=== PATIENT | male | born 1985 | race Caucasian/White ===

== ENCOUNTER 2018-09-15 15:28 | Inpatient (IN) | payer OTHER ==
[2018-09-15 17:52] VITALS: BMI 23.0
--- NOTE | 2018-09-15 19:56 | HP ---
CIWA Score Nausea/Vomitin-Mild Nausea/No Vomiting Muscle Tremors: 1-None Visible, but [place] Anxiety: 2 Agitation: 2 Paroxysmal Sweats: 2 Orientation: 0-Oriented Tacttile Disturbances: 0-None Auditory Disturbances: 0-None Visual Disturbances: 0-None - Admission Criteria OASAS Guidelines: Admission for Medically Managed Detox: Requires at least one of the followin. CIWA greater than 12 2. Seizures within the past 24 hours 3. Delirium tremens within the past 24 hours 4. Hallucinations within the past 24 hours 5. Acute intervention needed for co occurring medical disorder 6. Acute intervention needed for co occurring psychiatric disorder 7. Severe withdrawal that cannot be handled at a lower level of care (continued vomiting, continued diarrhea, abnormal vital signs) requiring intravenous medication and/or fluids 8. Admission ROS [facility] Chief Complaint: detox from benzos Allergies/Adverse Reactions: Allergies Allergy/AdvReac Type Severity Reaction Status Date / Time egg Allergy Verified 09/15/18 20:29 fish derived AdvReac Verified 09/15/18 19:05 History of Present Illness: 33 yo with h/o seizures here for detox from benzos. Pt on methadone 130mg. Has been to several detox- last detox a few months ago- relapsed 3 days after- started getting restless and frustrated, noises and bright lights were bothering him...took Klonopin and felt better. Benzo: xanax 8mg/day, Klonopin 12-14 mg/day> calms him down Alcohol- 1-2 beers/day heroin- occ 1-2 times a week Istop- neg for meds Utox: THC, cocaine, morphine, MTD, benzo Exam Limitations: No Limitations - Ebola screening Have you traveled outside of the country in the last 21 days: No Have you had contact with anyone from an Ebola affected area: No Have you been sick,other than usual withdrawal symptoms: No - Review of Systems Constitutional: No Symptoms Reported EENT: reports: No Symptoms Reported Respiratory: reports: No Symptoms reported Cardiac: reports: No Symptoms Reported GI: reports: No Symptoms Reported, Abdominal cramping : reports: No Symptoms Reported Musculoskeletal: reports: No Symptoms Reported Integumentary: reports: No Symptoms Reported Neuro: reports: No Symptoms reported Endocrine: reports: No Symptoms Reported Hematology: reports: No Symptoms Reported Psychiatric: reports: No Sypmtoms Reported Patient History - Patient Medical History Hx Asthma: No Hx Chronic Obstructive Pulmonary Disease (COPD): No Hx Cardiac Disorders: No Hx Hypertension: No Hx Seizures: Yes (4 MONTHS AGO, on topamax) Hx Diabetes: No Hx Gastrointestinal Disorders: No Hx Genitourinary Disorders: No Hx Sexually Transmitted Disorders: No Hx Renal Disease (ESRD): No Hx Depression: Yes Hx Suicide Attempt: No Hx Schizophrenia: No - Patient Surgical History Past Surgical History: Yes Hx Neurologic Surgery: No Hx Cataract Extraction: No Hx Cardiac Surgery: No Hx Lung Surgery: No Hx Breast Surgery: No Hx Breast Biopsy: No Hx Abdominal Surgery: No Hx Appendectomy: No Hx Cholecystectomy: No Hx Genitourinary Surgery: No Hx Section: No Hx Orthopedic Surgery: No Other Surgical History: LEFT JAW BROKEN 2017-METAL PLATE IMPLANTED Anesthesia Reaction: No - PPD History Previous Implant?: Yes Documented Results: Negative w/o proof Implanted On Prior [facility] Admission?: No - Smoking Cessation Smoking history: Current every day smoker Have you smoked in the past 12 months: Yes Aproximately how many cigarettes per day: 5 Hx Chewing Tobacco Use: No Initiated information on smoking cessation: No 'Breaking Loose' booklet given: 09/15/18 - Substance & Tx. History Hx Alcohol Use: Yes (occasional) Substance Use Type: Alcohol (a little bit), Cocaine (twice a week), Heroin ( twice a week on methadone), Marijuana (4 blunts/day), Opiates Hx Substance Use Treatment: Yes - Substances Abused Alprazolam (Xanax) Route: Oral Frequency: Daily Amount used: 8 MG DAILY Age of first use: 17 Date of Last Use: 09/14/18 Alcohol Route: Oral Frequency: Daily Amount used: 2 22 [employer] Age of first use: 15 Date of Last Use: 09/14/18 Heroin Route: Injection Frequency: 1-2 times per week Amount used: 2 BAGS Age of first use: 20 Date of Last Use: 09/13/18 Benzodiazepine (Klonopin) Route: Oral Frequency: Daily Amount used: 12-14 MG Age of first use: 17 Date of Last Use: 09/14/18 Family Disease History - Family Disease History Family Disease History: Diabetes: Father (alcohol addiction), Other: Father, Mother (alcohol addiction) Admission Physical Exam [facility] - Vital Signs Vital Signs: Vital Signs - 24 hr 09/15/18 17:50 Temperature 98.7 F Pulse Rate 70 Respiratory 18 Rate Blood Pressure 100/65 - Physical General Appearance: Yes: Within Normal Limits HEENTM: Yes: Within Normal Limits Respiratory: Yes: Within Normal Limits Neck: Yes: Within Normal Limits Cardiology: Yes: Within Normal Limits Abdominal: Yes: Within Normal Limits Genitourinary: Yes: Within Normal Limits Back: Yes: Within Normal Limits Musculoskeletal: Yes: Within Normal Limits Extremities: Yes: Within Normal Limits Neurological: Yes: Within Normal Limits Integumentary: Yes: Within Normal Limits Lymphatic: Yes: Within Normal Limits Cleared for Admission [facility] - Detox or Rehab [facility] Level of Care: Medically Managed [facility] Breath Alcohol Content Breath Alcohol Content: 0 Urine Drug Screen - Results Drug Screen Negative: No Urine Drug Screen Results: THC-Marijuana, VANDANA-Cocaine, OPI-Opiates, BZO- Benzodiazepines, MTD-Methadone
[2018-09-15] MEDS ORDERED: guaiFENesin/D-METHORPHAN HB 10 ML UNIT-DOSE CUPS PO PRN (20:10)
[2018-09-15] MEDS ORDERED: P-EPHED 60MG/TRIPROLIDI 2.5MG TABLET PO PRN (20:10)
[2018-09-15] MEDS ORDERED: MAGNESIUM CITRATE 300 ML BOTTLE PO PRN (20:10)
[2018-09-15] MEDS ORDERED: MAG HYDROX/AL HYDROX/SIMETH 30 ML UNIT-DOSE CUP PO PRN (20:10)
[2018-09-15] MEDS ORDERED: IBUPROFEN 400 MG TABLET (FP) PO PRN (20:10)
[2018-09-15] MEDS ORDERED: MENTHOL/PHENOL 1 EACH UD MM PRN (20:10)
[2018-09-15] MEDS ORDERED: LOPERAMIDE HCL 2 MG CAPSULE PO PRN (20:10)
[2018-09-15] MEDS ORDERED: MAGNESIUM HYDROX 2400MG/30ML ORAL SUSPENSION 30 ML CUP PO PRN (20:10)
[2018-09-15] MEDS ORDERED: diazePAM 5 MG TABLET PO ONE (20:30)
[2018-09-15] MEDS: THIAMINE HCL 100 MG TABLET (FP) PO SCH (22:15)
[2018-09-15] MEDS: diazePAM 5 MG TABLET PO SCH (22:15)
[2018-09-15] MEDS: TOPIRAMATE 100 MG TABLET PO SCH (22:15)
[2018-09-15] MEDS: MELATONIN 5 MG TABLETS PO PRN (22:16)
[2018-09-15] MEDS: FLUTICASONE PROP 0.05% 16 GM NASAL SPRAY NS SCH (23:24)
[2018-09-16 04:05] LABS: URINE APPEARANCE TURBID; URINE BILIRUBIN NEGATIVE (<2.0 mg/dL); URINE COLOR YELLOW; URINE GLUCOSE (UA) NEGATIVE (NEGATIVE); URINE KETONE NEGATIVE (NEGATIVE); URINE LEUK ESTERASE 2+ (NEGATIVE); URINE NITRITE NEGATIVE (NEGATIVE); URINE PROTEIN 1+ (NEGATIVE)
[2018-09-16 04:43] LABS: URINE BACTERIA FEW /hpf (NONE SEEN); URINE MUCUS FEW; YEAST MANY
[2018-09-16] MEDS: diazePAM 5 MG TABLET PO SCH ×3 (05:17→22:06)
[2018-09-16] MEDS ORDERED: METHADONE HCL 10 MG TABLET PO SCH (07:30)
[2018-09-16] MEDS ORDERED: METHADONE HCL 40 MG DISPERSABLE TABLET ONE (08:01)
[2018-09-16] MEDS ORDERED: METHADONE HCL 10 MG TABLET ONE (08:01)
[2018-09-16] MEDS: METHADONE 120 MG, METHADONE 10 MG PO SCH (08:02)
[2018-09-16] MEDS: diazePAM 5 MG TABLET PO PRN (10:18)
[2018-09-16] MEDS: FLUTICASONE PROP 0.05% 16 GM NASAL SPRAY NS SCH ×2 (10:18→22:06)
[2018-09-16] MEDS: PRENATAL VITAMINS W/ FOLIC ACID TABLET (FP) PO SCH (10:18)
[2018-09-16 10:59] LABS: HEMATOCRIT 37.3 % (35.4-49); HEMOGLOBIN 11.9 GM/dL (11.7-16.9); MCH 26.6 pg (25.7-33.7); MEAN CELL VOLUME 83.2 fl (80-96); MEAN PLT VOLUME 7.8 fl (7.5-11.1); PLATELET COUNT 261 K/MM3 (134-434); RBC 4.48 M/mm3 (4.00-5.60); RDW 14.1 % (11.9-15.9); WHITE BLOOD COUNT 7.7 K/mm3 (4.0-10.0)
[2018-09-16] MEDS: TOPIRAMATE 100 MG TABLET PO SCH ×2 (11:15→22:07)
[2018-09-16] MEDS ORDERED: ALBUTEROL SO4 8 GM HFA INHALER IH PRN (11:15)
--- NOTE | 2018-09-16 11:18 | PN ---
[facility] CIWA - CIWA Score Nausea/Vomitin-Mild Nausea/No Vomiting Muscle Tremors: 2 Anxiety: 3 Agitation: 3 Paroxysmal Sweats: 1-Minimal Palms Moist Orientation: 1-Uncertain about Date Tacttile Disturbances: 0-None Auditory Disturbances: 0-None Visual Disturbances: 0-None Headache: 2-Mild CIWA-Ar Total Score: 13 S Progress Note (SOAP) Subjective: anxiety gi distress methadone 130 mg po restlessness Objective: 09/16/18 11:17 Vital Signs Temperature 97.8 F 09/16/18 09:28 Pulse Rate 69 09/16/18 09:28 Respiratory Rate 18 09/16/18 09:28 Blood Pressure 96/53 L 09/16/18 09:28 O2 Sat by Pulse Oximetry (%) Laboratory Last Values WBC 7.7 K/mm3 (4.0-10.0) 09/16/18 07:30 RBC 4.48 M/mm3 (4.00-5.60) 09/16/18 07:30 Hgb 11.9 GM/dL (11.7-16.9) 09/16/18 07:30 Hct 37.3 % (35.4-49) 09/16/18 07:30 MCV 83.2 fl (80-96) 09/16/18 07:30 MCH 26.6 pg (25.7-33.7) 09/16/18 07:30 MCHC 32.0 g/dl (32.0-35.9) 09/16/18 07:30 RDW 14.1 % (11.9-15.9) 09/16/18 07:30 Plt Count 261 K/MM3 (134-434) 09/16/18 07:30 MPV 7.8 fl (7.5-11.1) 09/16/18 07:30 Urine Color Yellow 09/16/18 00:05 Urine Appearance Turbid 09/16/18 00:05 Urine pH 5.0 (5.0-8.0) 09/16/18 00:05 Ur Specific [place] 1.029 (1.010-1.035) 09/16/18 00:05 Urine Protein 1+ (NEGATIVE) H 09/16/18 00:05 Urine Glucose (UA) Negative (NEGATIVE) 09/16/18 00:05 Urine Ketones Negative (NEGATIVE) 09/16/18 00:05 Urine Blood Negative (NEGATIVE) 09/16/18 00:05 Urine Nitrite Negative (NEGATIVE) 09/16/18 00:05 Urine Bilirubin Negative (<2.0 mg/dL) 09/16/18 00:05 Urine Urobilinogen 2.0 mg/dL (0.2-1.0) 09/16/18 00:05 Ur Leukocyte Esterase 2+ (NEGATIVE) H 09/16/18 00:05 Urine WBC (Auto) 63 /hpf (3-5) 09/16/18 00:05 Urine RBC (Auto) None /hpf (0-3) 09/16/18 00:05 Urine Bacteria Few /hpf (NONE SEEN) 09/16/18 00:05 Urine Mucus Few 09/16/18 00:05 Urine Yeast Many 09/16/18 00:05 lab notefd uti 09/16/18 11:18 Assessment: 09/16/18 11:18 withdrawal sx uti Plan: continue detox bactrim ds bid
[2018-09-16] MEDS ORDERED: RANITIDINE HCL 150 MG TABLET (FP) PO SCH (11:30)
[2018-09-16 11:32] LABS: ALBUMIN 3.5 g/dl (3.4-5.0); ALK PHOS 90 U/L (45-117); ANION GAP 9 MMOL/L (8-16); BILIRUBIN,TOTAL 0.1 mg/dL (0.2-1); BLOOD UREA NITROGEN 12 mg/dL (7-18); CALCIUM 8.4 mg/dL (8.5-10.1); CHLORIDE 108 mmol/L (98-107); CO2 25 mmol/L (21-32); GLUCOSE,RANDOM 87 mg/dL (74-106); POTASSIUM 4.1 mmol/L (3.5-5.1); SGOT/AST 17 U/L (15-37); SGPT/ALT 19 U/L (13-61); SODIUM 142 mmol/L (136-145)
[2018-09-16] MEDS: SULFAMETHOXAZOLE/TRIMETHOPRIM 800MG/160MG D.S. TABLET PO SCH ×2 (11:44→22:07)
[2018-09-16] MEDS: RANITIDINE HCL 150 MG TABLET (FP) PO SCH ×2 (11:45→22:06)
[2018-09-16] MEDS: ACETAMINOPHEN 325 MG TABLET (FP) PO PRN (14:52)
[2018-09-16] MEDS: THIAMINE HCL 100 MG TABLET (FP) PO SCH (22:06)
[2018-09-16] MEDS: MELATONIN 5 MG TABLETS PO PRN (22:07)
[2018-09-16] MEDS: MONTELUKAST NA 10 MG TABLET PO SCH (22:07)
[2018-09-17] MEDS ORDERED: METHADONE HCL 40 MG DISPERSABLE TABLET ONE (04:53)
[2018-09-17] MEDS ORDERED: METHADONE HCL 10 MG TABLET ONE (04:53)
[2018-09-17] MEDS: diazePAM 5 MG TABLET PO PRN ×2 (05:17→17:29)
[2018-09-17] MEDS: ACETAMINOPHEN 325 MG TABLET (FP) PO PRN ×2 (05:18→17:19)
[2018-09-17] MEDS: METHADONE 120 MG, METHADONE 10 MG PO SCH (05:18)
[2018-09-17] MEDS: TOPIRAMATE 100 MG TABLET PO SCH ×2 (10:16→22:17)
[2018-09-17] MEDS: FLUTICASONE PROP 0.05% 16 GM NASAL SPRAY NS SCH ×2 (10:16→22:17)
[2018-09-17] MEDS: SULFAMETHOXAZOLE/TRIMETHOPRIM 800MG/160MG D.S. TABLET PO SCH ×2 (10:16→22:17)
[2018-09-17] MEDS: diazePAM 5 MG TABLET PO SCH ×2 (10:16→22:17)
[2018-09-17] MEDS: RANITIDINE HCL 150 MG TABLET (FP) PO SCH ×2 (10:16→22:17)
[2018-09-17] MEDS: PRENATAL VITAMINS W/ FOLIC ACID TABLET (FP) PO SCH (10:16)
[2018-09-17] MEDS: PETROLATUM, WHITE 30 GM TUBE TP SCH (12:24)
--- NOTE | 2018-09-17 14:57 | PN ---
[facility] CIWA - CIWA Score Nausea/Vomitin-Mild Nausea/No Vomiting Muscle Tremors: 2 Anxiety: 3 Agitation: 2 Paroxysmal Sweats: 1-Minimal Palms Moist Orientation: 0-Oriented Tacttile Disturbances: 0-None Auditory Disturbances: 0-None Visual Disturbances: 0-None Headache: 2-Mild CIWA-Ar Total Score: 11 S Progress Note (SOAP) Subjective: tremor sweat anxiety trouble sleep throughout the night Objective: 09/17/18 15:02 Vital Signs Temperature 97.3 F L 09/17/18 13:28 Pulse Rate 74 09/17/18 13:28 Respiratory Rate 18 09/17/18 13:28 Blood Pressure 104/60 09/17/18 13:28 O2 Sat by Pulse Oximetry (%) Laboratory Last Values WBC 7.7 K/mm3 (4.0-10.0) 09/16/18 07:30 RBC 4.48 M/mm3 (4.00-5.60) 09/16/18 07:30 Hgb 11.9 GM/dL (11.7-16.9) 09/16/18 07:30 Hct 37.3 % (35.4-49) 09/16/18 07:30 MCV 83.2 fl (80-96) 09/16/18 07:30 MCH 26.6 pg (25.7-33.7) 09/16/18 07:30 MCHC 32.0 g/dl (32.0-35.9) 09/16/18 07:30 RDW 14.1 % (11.9-15.9) 09/16/18 07:30 Plt Count 261 K/MM3 (134-434) 09/16/18 07:30 MPV 7.8 fl (7.5-11.1) 09/16/18 07:30 Sodium 142 mmol/L (136-145) 09/16/18 07:30 Potassium 4.1 mmol/L (3.5-5.1) 09/16/18 07:30 Chloride 108 mmol/L (98-107) H 09/16/18 07:30 Carbon Dioxide 25 mmol/L (21-32) 09/16/18 07:30 Anion Gap 9 MMOL/L (8-16) 09/16/18 07:30 BUN 12 mg/dL (7-18) 09/16/18 07:30 Creatinine 1.0 mg/dL (0.55-1.3) 09/16/18 07:30 Creat Clearance w eGFR > 60 (>60) 09/16/18 07:30 Random Glucose 87 mg/dL (74-106) 09/16/18 07:30 Calcium 8.4 mg/dL (8.5-10.1) L 09/16/18 07:30 Total Bilirubin 0.1 mg/dL (0.2-1) L 09/16/18 07:30 AST 17 U/L (15-37) 09/16/18 07:30 ALT 19 U/L (13-61) 09/16/18 07:30 Alkaline Phosphatase 90 U/L (45-117) 09/16/18 07:30 Total Protein 7.0 g/dl (6.4-8.2) 09/16/18 07:30 Albumin 3.5 g/dl (3.4-5.0) 09/16/18 07:30 Urine Color Yellow 09/16/18 00:05 Urine Appearance Turbid 09/16/18 00:05 Urine pH 5.0 (5.0-8.0) 09/16/18 00:05 Ur Specific [employer] 1.029 (1.010-1.035) 09/16/18 00:05 Urine Protein 1+ (NEGATIVE) H 09/16/18 00:05 Urine Glucose (UA) Negative (NEGATIVE) 09/16/18 00:05 Urine Ketones Negative (NEGATIVE) 09/16/18 00:05 Urine Blood Negative (NEGATIVE) 09/16/18 00:05 Urine Nitrite Negative (NEGATIVE) 09/16/18 00:05 Urine Bilirubin Negative (<2.0 mg/dL) 09/16/18 00:05 Urine Urobilinogen 2.0 mg/dL (0.2-1.0) 09/16/18 00:05 Ur Leukocyte Esterase 2+ (NEGATIVE) H 09/16/18 00:05 Urine WBC (Auto) 63 /hpf (3-5) 09/16/18 00:05 Urine RBC (Auto) None /hpf (0-3) 18 00:05 Urine Bacteria Few /hpf (NONE SEEN) 09/16/18 00:05 Urine Mucus Few 09/16/18 00:05 Urine Yeast Many 09/16/18 00:05 RPR Titer Nonreactive (NONREACTIVE) 09/16/18 07:30 lab noted continue bactrim oral fluid 09/17/18 15:03 Assessment: 09/17/18 15:03 withdrawal sx uti Plan: continue detox oral fluid
[2018-09-17] MEDS: MONTELUKAST NA 10 MG TABLET PO SCH (22:17)
[2018-09-17] MEDS: THIAMINE HCL 100 MG TABLET (FP) PO SCH (22:17)
[2018-09-18] MEDS ORDERED: METHADONE HCL 10 MG TABLET ONE (04:47)
[2018-09-18] MEDS ORDERED: METHADONE HCL 40 MG DISPERSABLE TABLET ONE (04:47)
[2018-09-18] MEDS: METHADONE 120 MG, METHADONE 10 MG PO SCH (05:24)
[2018-09-18] MEDS: FLUTICASONE PROP 0.05% 16 GM NASAL SPRAY NS SCH ×2 (10:33→22:09)
[2018-09-18] MEDS: RANITIDINE HCL 150 MG TABLET (FP) PO SCH ×2 (10:34→22:09)
[2018-09-18] MEDS: TOPIRAMATE 100 MG TABLET PO SCH ×2 (10:34→22:08)
[2018-09-18] MEDS: PETROLATUM, WHITE 30 GM TUBE TP SCH (10:34)
[2018-09-18] MEDS: PRENATAL VITAMINS W/ FOLIC ACID TABLET (FP) PO SCH (10:34)
[2018-09-18] MEDS: SULFAMETHOXAZOLE/TRIMETHOPRIM 800MG/160MG D.S. TABLET PO SCH ×2 (10:34→22:08)
[2018-09-18] MEDS: diazePAM 5 MG TABLET PO SCH ×2 (10:34→22:09)
--- NOTE | 2018-09-18 13:12 | PN ---
[facility] Progress Note Note: PATIENT CONTINUES WITH DETOX PROTOCOL. STATES HE FEELS MUCH BETTER, C/O ANXIETY BUT MANAGEABLE WITH CURRENT TREATMENT AND SUPPORTIVE MEASURES. Vital Signs Temperature 97.9 F 09/18/18 10:58 Pulse Rate 79 09/18/18 10:58 Respiratory Rate 20 09/18/18 10:58 Blood Pressure 100/67 09/18/18 10:58 O2 Sat by Pulse Oximetry (%) Laboratory Tests 09/16/18 09/16/18 09/16/18 00:05 07:30 07:30 WBC 7.7 RBC 4.48 Hgb 11.9 Hct 37.3 MCV 83.2 MCH 26.6 MCHC 32.0 RDW 14.1 Plt Count 261 MPV 7.8 Sodium 142 Potassium 4.1 Chloride 108 H Carbon Dioxide 25 Anion Gap 9 BUN 12 Creatinine 1.0 Creat Clearance w eGFR > 60 Random Glucose 87 Calcium 8.4 L Total Bilirubin 0.1 L AST 17 ALT 19 Alkaline Phosphatase 90 Total Protein 7.0 Albumin 3.5 Urine Color Yellow Urine Appearance Turbid Urine pH 5.0 Ur Specific [place] 1.029 Urine Protein 1+ H Urine Glucose (UA) Negative Urine Ketones Negative Urine Blood Negative Urine Nitrite Negative Urine Bilirubin Negative Urine Urobilinogen 2.0 Ur Leukocyte Esterase 2+ H Urine WBC (Auto) 63 Urine RBC (Auto) None Urine Bacteria Few Urine Mucus Few Urine Yeast Many RPR Titer 09/16/18 07:30 WBC RBC Hgb Hct MCV MCH MCHC RDW Plt Count MPV Sodium Potassium Chloride Carbon Dioxide Anion Gap BUN Creatinine Creat Clearance w eGFR Random Glucose Calcium Total Bilirubin AST ALT Alkaline Phosphatase Total Protein Albumin Urine Color Urine Appearance Urine pH Ur Specific [place] Urine Protein Urine Glucose (UA) Urine Ketones Urine Blood Urine Nitrite Urine Bilirubin Urine Urobilinogen Ur Leukocyte Esterase Urine WBC (Auto) Urine RBC (Auto) Urine Bacteria Urine Mucus Urine Yeast RPR Titer Nonreactive PE; ALERT AND ORIENTED X 3 SKIN WARM AND DRY DENIES SI/HI EXT FULL ROM, NO TREMORS NOTED AMB AD ERIBERTO A/P; WITHDRAWAL SX CONTINUE DETOX REGIMEN ENCOURAGE ORAL FLUIDS FOR D/C IN AM
[2018-09-18] MEDS: ACETAMINOPHEN 325 MG TABLET (FP) PO PRN (17:33)
[2018-09-18] MEDS: THIAMINE HCL 100 MG TABLET (FP) PO SCH (22:08)
[2018-09-18] MEDS: MONTELUKAST NA 10 MG TABLET PO SCH (22:09)
[2018-09-19] MEDS ORDERED: METHADONE HCL 40 MG DISPERSABLE TABLET ONE (04:43)
[2018-09-19] MEDS ORDERED: METHADONE HCL 10 MG TABLET ONE (04:43)
[2018-09-19] MEDS: METHADONE 120 MG, METHADONE 10 MG PO SCH (05:05)
[2018-09-19 06:15] VITALS: BP 107/70; PULSE 84; TEMP 97.2
[2018-09-19] MEDS ORDERED: diazePAM 5 MG TABLET PO SCH (10:00)
== END 2018-09-19 06:45 | disposition home or self-care (01) | DRG 773 ==
LOC: YASAS 15:28 → Y3N 19:37
PROC: HZ2ZZZZ Detoxification Services for Substance Abuse Treatment (ICD-10-PCS; principal; 2018-09-15)
DX: F13.230 Sedative, hypnotic or anxiolytic dependence with withdrawal, uncomplicated (principal); F10.230 Alcohol dependence with withdrawal, uncomplicated; F11.20 Opioid dependence, uncomplicated; F17.210 Nicotine dependence, cigarettes, uncomplicated; N39.0 Urinary tract infection, site not specified; G40.909 Epilepsy, unspecified, not intractable, without status epilepticus; Z91.012 Allergy to eggs; Z91.013 Allergy to seafood
CPT/HCPCS: 36415; 80053; 81003; 81015; 85027; 86593

== ENCOUNTER 2019-02-12 12:13 | Inpatient (IN) | payer OTHER ==
[2019-02-12 13:45] VITALS: BMI 22.2
--- NOTE | 2019-02-12 15:44 | HP ---
CIWA Score Nausea/Vomitin Muscle Tremors: 2 Anxiety: 4-Mod. Anxious/Guarded Agitation: 1-Slight > Activity Paroxysmal Sweats: 2 Orientation: 2-Disoriented Date<2 days Tacttile Disturbances: 0-None Auditory Disturbances: 0-None Visual Disturbances: 2-Mild Sensitivity Headache: 5-Severe CIWA-Ar Total Score: 21 - Admission Criteria OASAS Guidelines: Admission for Medically Managed Detox: Requires at least one of the followin. CIWA greater than 12 2. Seizures within the past 24 hours 3. Delirium tremens within the past 24 hours 4. Hallucinations within the past 24 hours 5. Acute intervention needed for co occurring medical disorder 6. Acute intervention needed for co occurring psychiatric disorder 7. Severe withdrawal that cannot be handled at a lower level of care (continued vomiting, continued diarrhea, abnormal vital signs) requiring intravenous medication and/or fluids 8. Admission ROS [facility] Allergies/Adverse Reactions: Allergies Allergy/AdvReac Type Severity Reaction Status Date / Time egg Allergy Verified 02/12/19 13:27 fish derived AdvReac Verified 02/12/19 13:27 History of Present Illness: pt here requesting detox from benzo use, reports 4-6 /day Klonopin max 10 mg/ day and xanax 12 mg /day x 10 years , reports panic d/o and seizures if not using , reports seizure d/o x 12 years , latest use 7 am heroin use since age 19 , IVDU since age 24 , current daily use 2 bags every other day , needles from the exchange, denies sharing , denies re-using , denies abscess or OD currently in [facility] x 2 mo , previously in another [facility] x 4 years , daily dose 130 mg , latest today . 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 Exam Limitations: Clinical Condition - Ebola screening Have you traveled outside of the country in the last 21 days: No Have you had contact with anyone from an Ebola affected area: No Do you have a fever: No - Review of Systems Constitutional: See HPI EENT: reports: Other (glasses) Respiratory: reports: No Symptoms reported Cardiac: reports: No Symptoms Reported GI: reports: See HPI : reports: No Symptoms Reported Musculoskeletal: reports: No Symptoms Reported Integumentary: reports: Rash (x 3 days on both legs , pruritic) Neuro: reports: Headache, Seizure Endocrine: reports: No Symptoms Reported Psychiatric: reports: Orientated x3 Patient History - Patient Medical History Hx Asthma: No Hx Chronic Obstructive Pulmonary Disease (COPD): No Hx Cardiac Disorders: No Hx Hypertension: No Hx Seizures: Yes (4 MONTHS AGO, on topamax) Hx Diabetes: No Hx Gastrointestinal Disorders: No Hx Genitourinary Disorders: No Hx Sexually Transmitted Disorders: No Hx Renal Disease (ESRD): No Hx Depression: Yes Hx Suicide Attempt: No Hx Schizophrenia: No - Patient Surgical History Past Surgical History: Yes Hx Neurologic Surgery: No Hx Cataract Extraction: No Hx Cardiac Surgery: No Hx Lung Surgery: No Hx Breast Surgery: No Hx Breast Biopsy: No Hx Abdominal Surgery: No Hx Appendectomy: No Hx Cholecystectomy: No Hx Genitourinary Surgery: No Hx Section: No Hx Orthopedic Surgery: No Other Surgical History: LEFT JAW BROKEN 2017-METAL PLATE IMPLANTED Anesthesia Reaction: No - PPD History Date: 09/17/18 - Smoking Cessation Smoking history: Current every day smoker Have you smoked in the past 12 months: Yes Aproximately how many cigarettes per day: 5 Hx Chewing Tobacco Use: No Initiated information on smoking cessation: No - Substances abused Alcohol Substance route: Oral Frequency: Daily Amount used: beers- 24oz can liquor- 1pt Age of first use: 12 Date of last use: 02/11/19 Alprazolam (Xanax) Substance route: Oral Frequency: Daily Amount used: 12mg Age of first use: 15 Date of last use: 02/11/19 Cocaine Substance route: Injection Frequency: Daily Amount used: $60 Age of first use: 10 Date of last use: 02/11/19 Heroin Substance route: Injection Frequency: Daily Amount used: 2bags Age of first use: 19 Date of last use: 02/11/19 Family Disease History - Family Disease History Family Disease History: Diabetes: Father (alcohol addiction), Other: Father, Mother (alcohol addiction) Admission Physical Exam [facility] - Vital Signs Vital Signs: Vital Signs - 24 hr 02/12/19 13:23 Temperature 97.2 F L Pulse Rate 66 Respiratory 18 Rate Blood Pressure 106/62 - Physical General Appearance: Yes: Mild Distress, Anxious HEENTM: Yes: EOMI, Hearing grossly Normal, Normocephalic, Normal Voice, Other ( poor dentition , missing teeth) Respiratory: Yes: Chest Non-Tender, No Respiratory Distress, No Accessory Muscle Use Neck: Yes: No masses,lesions,Nodules, Trachea in good position Cardiology: Yes: Regular Rhythm, Regular Rate, S1, S2 Abdominal: Yes: Non Tender, Soft Back: Yes: Normal Inspection Musculoskeletal: Yes: Gait Steady Extremities: Yes: Normal Range of Motion, Non-Tender, Tremors Neurological: Yes: Alert, Motor Strength 5/5, Normal Mood/Affect Integumentary: Yes: Warm, Rash (bilateral anterior thighs macular no d/c) - Diagnostic (1) Alcohol abuse Current Visit: Yes Status: Acute (2) Cocaine dependence Current Visit: Yes Status: Chronic Qualifiers: Substance use status: uncomplicated Qualified Code(s): F14.20 - Cocaine dependence, uncomplicated (3) Sedative, hypnotic or anxiolytic abuse with sedative, hypnotic or anxiolytic -induced anxiety disorder Current Visit: Yes Status: Acute (4) Methadone maintenance therapy patient Current Visit: Yes Status: Chronic (5) Nicotine dependence Current Visit: Yes Status: Chronic Qualifiers: Nicotine product type: cigarettes (6) Cannabis abuse Current Visit: Yes Status: Chronic Breathalyzer - Breathalyzer Breathalyzer: 0 Urine Drug Screen - Test Device Lot number: [id number] Expiration date: 11/05/20 - Control Is test valid?: Yes - Results Drug screen NEGATIVE: No Urine drug screen results: THC-Marijuana, VANDANA-Cocaine, MOP-Opiates, MTD- Methadone, BZO-Benzodiazepines Inpatient Rehab Admission - Rehab Decision to Admit Inpatient rehab admission?: No
[2019-02-12] MEDS ORDERED: MENTHOL/PHENOL 1 EACH UD MM PRN (15:52)
[2019-02-12] MEDS ORDERED: MAGNESIUM HYDROX 2400MG/30ML ORAL SUSPENSION 30 ML CUP PO PRN (15:52)
[2019-02-12] MEDS ORDERED: MELATONIN 5 MG TABLETS PO PRN (15:52)
[2019-02-12] MEDS ORDERED: IBUPROFEN 400 MG TABLET (FP) PO PRN (15:52)
[2019-02-12] MEDS ORDERED: ACETAMINOPHEN 325 MG TABLET (FP) PO PRN ×2 (15:52)
[2019-02-12] MEDS ORDERED: MAGNESIUM CITRATE 300 ML BOTTLE PO PRN (15:52)
[2019-02-12] MEDS ORDERED: chlordiazePOXIDE HCL 25 MG CAPSULE PO PRN (15:52)
[2019-02-12] MEDS ORDERED: diphenhydrAMINE HCL 25 MG CAPSULE (FP) PO ONE (16:45)
[2019-02-12] MEDS: chlordiazePOXIDE HCL 25 MG CAPSULE PO SCH ×2 (17:06→22:07)
[2019-02-12] MEDS: MAG HYDROX/AL HYDROX/SIMETH 30 ML UNIT-DOSE CUP PO PRN (17:10)
[2019-02-12] MEDS: levETIRAcetam 250 MG TABLET (FP) PO SCH (22:06)
[2019-02-12] MEDS: THIAMINE HCL 100 MG TABLET (FP) PO SCH (22:07)
[2019-02-13] MEDS ORDERED: METHADONE HCL 10 MG TABLET ONE (04:57)
[2019-02-13] MEDS ORDERED: METHADONE HCL 40 MG DISPERSABLE TABLET ONE (04:58)
[2019-02-13] MEDS: chlordiazePOXIDE HCL 25 MG CAPSULE PO SCH ×4 (05:53→21:59)
[2019-02-13] MEDS: METHADONE 120 MG, METHADONE 10 MG PO SCH (05:53)
[2019-02-13] MEDS ORDERED: METHADONE HCL 10 MG TABLET PO SCH (06:00)
[2019-02-13] MEDS: BISMUTH SUBSALICYLATE 524 MG/30 ML UD PO PRN ×2 (08:50→13:58)
[2019-02-13] MEDS: levETIRAcetam 250 MG TABLET (FP) PO SCH ×2 (10:32→21:57)
[2019-02-13] MEDS: PRENATAL VITAMINS W/ FOLIC ACID TABLET (FP) PO SCH (10:33)
[2019-02-13] MEDS: diphenhydrAMINE HCL 25 MG CAPSULE (FP) PO PRN ×2 (10:34→16:56)
[2019-02-13 11:39] LABS: ALBUMIN 3.6 g/dl (3.4-5.0); BILIRUBIN,TOTAL 0.2 mg/dL (0.2-1); CALCIUM 8.8 mg/dL (8.5-10.1); CREATININE 0.7 mg/dL (0.55-1.3); HEMATOCRIT 38.2 % (35.4-49); HEMOGLOBIN 12.4 GM/dL (11.7-16.9); MCHC 32.4 g/dl (32.0-35.9); MEAN CELL VOLUME 83.2 fl (80-96); MEAN PLT VOLUME 7.8 fl (7.5-11.1); PLATELET COUNT 349 K/MM3 (134-434); POTASSIUM 4.4 mmol/L (3.5-5.1); RBC 4.59 M/mm3 (4.00-5.60); TOT PROT 7.2 g/dl (6.4-8.2); WHITE BLOOD COUNT 8.2 K/mm3 (4.0-10.0)
--- NOTE | 2019-02-13 14:42 | PN ---
[facility] CIWA - CIWA Score Nausea/Vomitin-No Nausea/No Vomiting Muscle Tremors: None Anxiety: 4-Mod. Anxious/Guarded Agitation: 2 Paroxysmal Sweats: No Perspiration Orientation: 0-Oriented Tacttile Disturbances: 3-Moderate Itch/Numb/Burn Auditory Disturbances: 0-None Visual Disturbances: 3-Moderate Sensitivity Headache: 0-None Present CIWA-Ar Total Score: 12 BHS Progress Note (SOAP) Subjective: Anxious, Itching (Generalized throughout multiple parts of body), Diarrhea. Objective: PATIENT A & O X 3, OBSERVED AMBULATING ON UNIT UNASSISTED. IN NO ACUTE DISTRESS. NO ERYTHEMA OR SKIN LESIONS VISUALIZED ON ANY PART OF BODY THAT PATIENT REPORTS TO FEEL ITCHY. PATIENT DENIES ANY KNOWN RECENT CONTACT WITH ANY UNUSUAL SUBSTANCES / SURFACES. PATIENT BELIEVES THAT ITCHING MAY BE DUE TO EGG ALLERGY? 02/13/19 14:43 Vital Signs Temperature 97.0 F L 02/13/19 10:25 Pulse Rate 62 02/13/19 10:25 Respiratory Rate 20 02/13/19 10:25 Blood Pressure 97/58 L 02/13/19 10:25 O2 Sat by Pulse Oximetry (%) Laboratory Tests 02/13/19 02/13/19 02/13/19 08:00 08:00 08:00 WBC 8.2 RBC 4.59 Hgb 12.4 Hct 38.2 MCV 83.2 MCH 27.0 MCHC 32.4 RDW 14.0 Plt Count 349 D MPV 7.8 Sodium 138 Potassium 4.4 Chloride 104 Carbon Dioxide 28 Anion Gap 5 L BUN 6 L Creatinine 0.7 Est GFR (CKD-EPI)AfAm 142.70 Est GFR (CKD-EPI)NonAf 123.13 Random Glucose 85 Calcium 8.8 Total Bilirubin 0.2 AST 18 ALT 21 Alkaline Phosphatase 77 Total Protein 7.2 Albumin 3.6 RPR Titer Nonreactive LABS NOTED. 02/13/19 14:44 02/13/19 14:47 Assessment: 02/13/19 14:47 WITHDRAWAL SYMPTOMS. Plan: CONTINUE DETOX. INCREASE DAILY PO FLUID / WATER INTAKE. BENADRYL PO PRN / BENADRYL TOPICAL GEL BOTH ORDERED FOR GENERALIZED ITCHING. PRN PEPTO-BISMOL PO FOR DIARRHEA.
--- NOTE | 2019-02-13 17:18 | CONSULT ---
[facility] Psychiatric Consult - Data Date of interview: 02/13/19 Admission source: [facility] Identifying data: Second admission to [facility] for this 33 y/o male referred by Gabriela for detoxification (opioid, benzos, cocaine). Examined at [address] [place] [address]. Patient is single, a father of two, domiciled, unemployed and supported on welfare. Substance Abuse History: Confirmed by the patient in this session Details in current [facility] report : Smoking history: Current every day smoker. Have you smoked in the past 12 months: Yes. Aproximately how many cigarettes per day: 5. Hx Chewing Tobacco Use: No. Initiated information on smoking cessation: No. - Substances abused. Alcohol. Substance route: Oral. Frequency: Daily. Amount used: beers- 24oz can liquor- 1pt. Age of first use: 12. Date of last use: 02/11/19. Alprazolam (Xanax). Substance route: Oral. Frequency: Daily. Amount used: 12mg. Age of first use: 15. Date of last use: 02/11/19. Cocaine. Substance route: Injection. Frequency: Daily. Amount used: $60. Age of first use: 10. Date of last use: 02/11/19. Heroin. Substance route: Injection. Frequency: Daily. Amount used: 2bags. Age of first use: 19. Date of last use: 02/11/19 Medical History: Seizure disorder (on keppra). Psychiatric History: History of multiple psychiatric hospitalizations ([facility], [facility], [facility] in [place]). Diagnosed with MDD + Panic Disorder. Mr Ashton sees a psychiatrist at the [facility] program ( on methadone maintenance = 130 mg/day). Treated with a regimen of buspar 5 mg/ bid + remeron 15 m/hs + zoloft 50 mg/day (verified via referral papers from [facility]). No history of suicide attempts. Physical/Sexual Abuse/Trauma History: Patient denies. Additional Comment: Urine drug screen results: THC-Marijuana, VANDANA-Cocaine, MOP- Opiates, MTD-Methadone, BZO-Benzodiazepines. Noted. Mental Status Exam - Mental Status Exam Alert and Oriented to: Time, Place, Person Cognitive Function: Good Patient Appearance: Well Groomed (missing front teeth) Mood: Anxious, Apprehensive Affect: Appropriate, Normal Range Patient Behavior: Appropriate, Cooperative (during interview) Speech Pattern: Clear, Appropriate Voice Loudness: Normal Thought Process: Intact, Goal Oriented Thought Disorder: Not Present Hallucinations: Denies Suicidal Ideation: Denies Homicidal Ideation: Denies Insight/Judgement: Poor Sleep: Poorly, Difficulty falling asleep Appetite: Good Muscle strength/Tone: Normal Gait/Station: Normal Psychiatric Findings - Problem List ([place] 1, 2,3) (1) Sedative, hypnotic or anxiolytic abuse with sedative, hypnotic or anxiolytic -induced anxiety disorder Current Visit: Yes Status: Acute (2) Opioid dependence on agonist therapy Current Visit: Yes Status: Chronic (3) Alcohol abuse Current Visit: Yes Status: Chronic (4) Cocaine dependence Current Visit: Yes Status: Chronic Qualifiers: Substance use status: uncomplicated Qualified Code(s): F14.20 - Cocaine dependence, uncomplicated (5) Cannabis abuse Current Visit: Yes Status: Chronic (6) Nicotine dependence Current Visit: Yes Status: Chronic Qualifiers: Nicotine product type: cigarettes (7) History of depression Current Visit: Yes Status: Chronic (8) Substance induced mood disorder Current Visit: Yes Status: Chronic (9) Insomnia Current Visit: Yes Status: Chronic - Initial Treatment Plan Initial Treatment Plan: Initially, this patient presented as perseverative, needy, demanding and inappropriate (pressuring MD to see him ahead of already scheduled patients). Mr Ashton kept following MD on the unit and he was resistant to verbal redirections. Security staff was called for assistance. Patient redirected by MD + enrollment eligibility representative from the Administration. Calmed down. Psychiatric interview conducted without incident. Psychoeducation. Sleep hygiene. Detoxification. Resumed : buspar 5 mg po bid + zoloft 100 mg po daily + remeron 15 mg po hs. Side effecst/benefits discussed with patient. Consent ( verbal) given to Md. Observation.
[2019-02-13] MEDS: THIAMINE HCL 100 MG TABLET (FP) PO SCH (21:58)
[2019-02-13] MEDS: MIRTAZAPINE 15 MG TABLET (FP) PO SCH (21:59)
[2019-02-13] MEDS: busPIRone HCL 10 MG TABLET (FP) PO SCH (21:59)
[2019-02-14] MEDS ORDERED: METHADONE HCL 10 MG TABLET ONE (04:57)
[2019-02-14] MEDS ORDERED: METHADONE HCL 40 MG DISPERSABLE TABLET ONE (04:58)
[2019-02-14] MEDS: METHADONE 120 MG, METHADONE 10 MG PO SCH (05:24)
[2019-02-14] MEDS: BISMUTH SUBSALICYLATE 524 MG/30 ML UD PO PRN ×2 (05:25→17:08)
[2019-02-14] MEDS: chlordiazePOXIDE HCL 25 MG CAPSULE PO SCH ×2 (05:25→10:12)
[2019-02-14] MEDS ORDERED: LOPERAMIDE HCL 2 MG CAPSULE PO ONE (09:41)
[2019-02-14] MEDS ORDERED: PATIENT'S OWN MEDICATION (NON-FORMULARY) (Sertraline Hcl [Zoloft] 100 MG) PO SCH (10:00)
[2019-02-14] MEDS: busPIRone HCL 10 MG TABLET (FP) PO SCH ×2 (10:09→22:20)
[2019-02-14] MEDS: levETIRAcetam 250 MG TABLET (FP) PO SCH ×2 (10:12→22:19)
[2019-02-14] MEDS: SERTRALINE HCL 50 MG TABLET (FP) PO SCH (10:12)
[2019-02-14] MEDS: PRENATAL VITAMINS W/ FOLIC ACID TABLET (FP) PO SCH (10:12)
[2019-02-14] MEDS: diphenhydrAMINE HCL 25 MG CAPSULE (FP) PO PRN (10:12)
[2019-02-14] MEDS: NICOTINE POLACRILEX 4 MG GUM BUC PRN (10:41)
--- NOTE | 2019-02-14 12:07 | PN ---
S CIWA - CIWA Score Nausea/Vomitin-Mild Nausea/No Vomiting Muscle Tremors: 1-None Visible, but [place] Anxiety: 3 Agitation: 2 Paroxysmal Sweats: 1-Minimal Palms Moist Orientation: 0-Oriented Tacttile Disturbances: 0-None Auditory Disturbances: 0-None Visual Disturbances: 0-None Headache: 0-None Present CIWA-Ar Total Score: 8 [facility] Progress Note (SOAP) Subjective: patient has loose stool pepto not working one dose immodium 4 mg now encourage oral fluid Objective: 02/14/19 12:13 Vital Signs Temperature 97.1 F L 02/14/19 09:44 Pulse Rate 67 02/14/19 09:44 Respiratory Rate 18 02/14/19 09:44 Blood Pressure 113/70 02/14/19 09:44 O2 Sat by Pulse Oximetry (%) Laboratory Last Values WBC 8.2 K/mm3 (4.0-10.0) 02/13/19 08:00 RBC 4.59 M/mm3 (4.00-5.60) 02/13/19 08:00 Hgb 12.4 GM/dL (11.7-16.9) 02/13/19 08:00 Hct 38.2 % (35.4-49) 02/13/19 08:00 MCV 83.2 fl (80-96) 02/13/19 08:00 MCH 27.0 pg (25.7-33.7) 02/13/19 08:00 MCHC 32.4 g/dl (32.0-35.9) 02/13/19 08:00 RDW 14.0 % (11.9-15.9) 02/13/19 08:00 Plt Count 349 K/MM3 (134-434) D 02/13/19 08:00 MPV 7.8 fl (7.5-11.1) 02/13/19 08:00 Sodium 138 mmol/L (136-145) 02/13/19 08:00 Potassium 4.4 mmol/L (3.5-5.1) 02/13/19 08:00 Chloride 104 mmol/L (98-107) 02/13/19 08:00 Carbon Dioxide 28 mmol/L (21-32) 02/13/19 08:00 Anion Gap 5 MMOL/L (8-16) L 02/13/19 08:00 BUN 6 mg/dL (7-18) L 02/13/19 08:00 Creatinine 0.7 mg/dL (0.55-1.3) 02/13/19 08:00 Est GFR (CKD-EPI)AfAm 142.70 02/13/19 08:00 Est GFR (CKD-EPI)NonAf 123.13 02/13/19 08:00 Random Glucose 85 mg/dL (74-106) 02/13/19 08:00 Calcium 8.8 mg/dL (8.5-10.1) 02/13/19 08:00 Total Bilirubin 0.2 mg/dL (0.2-1) 02/13/19 08:00 AST 18 U/L (15-37) 02/13/19 08:00 ALT 21 U/L (13-61) 02/13/19 08:00 Alkaline Phosphatase 77 U/L (45-117) 02/13/19 08:00 Total Protein 7.2 g/dl (6.4-8.2) 02/13/19 08:00 Albumin 3.6 g/dl (3.4-5.0) 02/13/19 08:00 RPR Titer Nonreactive (NONREACTIVE) 02/13/19 08:00 lab noted Assessment: 02/14/19 12:13 alcohol and benzo withdrawal sx Plan: continue detox increase oral fluid ensure 120 ml bid
[2019-02-14] MEDS ORDERED: chlordiazePOXIDE HCL 10 MG CAPSULE PO PRN (17:00)
[2019-02-14] MEDS: chlordiazePOXIDE HCL 10 MG CAPSULE PO SCH ×2 (17:07→22:59)
[2019-02-14] MEDS: THIAMINE HCL 100 MG TABLET (FP) PO SCH (22:19)
[2019-02-14] MEDS: MIRTAZAPINE 15 MG TABLET (FP) PO SCH (22:21)
[2019-02-15] MEDS ORDERED: METHADONE HCL 10 MG TABLET ONE (04:43)
[2019-02-15] MEDS ORDERED: METHADONE HCL 40 MG DISPERSABLE TABLET ONE (04:43)
[2019-02-15] MEDS: METHADONE 120 MG, METHADONE 10 MG PO SCH (05:11)
[2019-02-15] MEDS: chlordiazePOXIDE HCL 10 MG CAPSULE PO SCH ×3 (05:11→17:13)
[2019-02-15] MEDS: BISMUTH SUBSALICYLATE 524 MG/30 ML UD PO PRN (05:13)
[2019-02-15] MEDS: diphenhydrAMINE HCL 25 MG CAPSULE (FP) PO PRN ×2 (05:20→10:20)
--- NOTE | 2019-02-15 09:00 | PN ---
[facility] CIWA - CIWA Score Nausea/Vomitin-No Nausea/No Vomiting Muscle Tremors: 2 Anxiety: 1-Mildly Anxious Agitation: 1-Slight > Activity Paroxysmal Sweats: No Perspiration Orientation: 0-Oriented Tacttile Disturbances: 0-None Auditory Disturbances: 0-None Visual Disturbances: 0-None Headache: 0-None Present CIWA-Ar Total Score: 4 BHS Progress Note (SOAP) Subjective: diarrhea tolerate fluid and food well ensure supplement encourage oral fluid Objective: 02/15/19 13:43 Vital Signs Temperature 96.4 F L 02/15/19 13:33 Pulse Rate 55 L 02/15/19 13:33 Respiratory Rate 18 02/15/19 13:33 Blood Pressure 107/65 02/15/19 13:33 O2 Sat by Pulse Oximetry (%) Laboratory Last Values WBC 8.2 K/mm3 (4.0-10.0) 02/13/19 08:00 RBC 4.59 M/mm3 (4.00-5.60) 02/13/19 08:00 Hgb 12.4 GM/dL (11.7-16.9) 02/13/19 08:00 Hct 38.2 % (35.4-49) 02/13/19 08:00 MCV 83.2 fl (80-96) 02/13/19 08:00 MCH 27.0 pg (25.7-33.7) 02/13/19 08:00 MCHC 32.4 g/dl (32.0-35.9) 02/13/19 08:00 RDW 14.0 % (11.9-15.9) 02/13/19 08:00 Plt Count 349 K/MM3 (134-434) D 02/13/19 08:00 MPV 7.8 fl (7.5-11.1) 02/13/19 08:00 Sodium 138 mmol/L (136-145) 02/13/19 08:00 Potassium 4.4 mmol/L (3.5-5.1) 02/13/19 08:00 Chloride 104 mmol/L (98-107) 02/13/19 08:00 Carbon Dioxide 28 mmol/L (21-32) 02/13/19 08:00 Anion Gap 5 MMOL/L (8-16) L 02/13/19 08:00 BUN 6 mg/dL (7-18) L 02/13/19 08:00 Creatinine 0.7 mg/dL (0.55-1.3) 02/13/19 08:00 Est GFR (CKD-EPI)AfAm 142.70 02/13/19 08:00 Est GFR (CKD-EPI)NonAf 123.13 02/13/19 08:00 Random Glucose 85 mg/dL (74-106) 02/13/19 08:00 Calcium 8.8 mg/dL (8.5-10.1) 02/13/19 08:00 Total Bilirubin 0.2 mg/dL (0.2-1) 02/13/19 08:00 AST 18 U/L (15-37) 02/13/19 08:00 ALT 21 U/L (13-61) 02/13/19 08:00 Alkaline Phosphatase 77 U/L (45-117) 02/13/19 08:00 Total Protein 7.2 g/dl (6.4-8.2) 02/13/19 08:00 Albumin 3.6 g/dl (3.4-5.0) 02/13/19 08:00 RPR Titer Nonreactive (NONREACTIVE) 02/13/19 08:00 lab noted Assessment: 02/15/19 13:44 withdrawal sx Plan: continue detox diarrhea treated with imodium
[2019-02-15] MEDS: LOPERAMIDE HCL 2 MG CAPSULE PO PRN ×2 (10:15→17:15)
[2019-02-15] MEDS: SERTRALINE HCL 50 MG TABLET (FP) PO SCH (10:16)
[2019-02-15] MEDS: PRENATAL VITAMINS W/ FOLIC ACID TABLET (FP) PO SCH (10:16)
[2019-02-15] MEDS: busPIRone HCL 10 MG TABLET (FP) PO SCH (10:18)
[2019-02-15] MEDS: NICOTINE POLACRILEX 4 MG GUM BUC PRN ×2 (10:20→22:28)
[2019-02-15] MEDS: levETIRAcetam 250 MG TABLET (FP) PO SCH ×2 (11:21→22:03)
[2019-02-15] MEDS: busPIRone HCL 5 MG TABLET PO SCH (22:04)
[2019-02-15] MEDS: THIAMINE HCL 100 MG TABLET (FP) PO SCH (22:04)
[2019-02-15] MEDS: MIRTAZAPINE 15 MG TABLET (FP) PO SCH (22:04)
[2019-02-15] MEDS: MAG HYDROX/AL HYDROX/SIMETH 30 ML UNIT-DOSE CUP PO PRN (22:05)
[2019-02-16] MEDS ORDERED: METHADONE HCL 10 MG TABLET ONE (05:00)
[2019-02-16] MEDS ORDERED: METHADONE HCL 40 MG DISPERSABLE TABLET ONE (05:01)
[2019-02-16] MEDS: LOPERAMIDE HCL 2 MG CAPSULE PO PRN (05:40)
[2019-02-16] MEDS: METHADONE 120 MG, METHADONE 10 MG PO SCH (05:41)
[2019-02-16] MEDS: chlordiazePOXIDE HCL 10 MG CAPSULE PO SCH (05:41)
[2019-02-16 09:03] VITALS: BP 96/54; PULSE 76; TEMP 98.1
[2019-02-16] MEDS: SERTRALINE HCL 50 MG TABLET (FP) PO SCH (10:21)
[2019-02-16] MEDS: levETIRAcetam 250 MG TABLET (FP) PO SCH (10:21)
[2019-02-16] MEDS: diphenhydrAMINE HCL 25 MG CAPSULE (FP) PO PRN (10:22)
[2019-02-16] MEDS: busPIRone HCL 5 MG TABLET PO SCH (10:23)
[2019-02-16] MEDS: PRENATAL VITAMINS W/ FOLIC ACID TABLET (FP) PO SCH (10:54)
--- NOTE | 2019-02-16 14:45 | DS ---
[facility] Detox Discharge Summary Admission Date: 02/12/19 Discharge Date: 02/16/19 - History Present History: Alcohol Dependence, Sedative Dependence Additional Comments: 33 years old male admitted on 02/12/19 for alcohol and benzo withdrawal stabilization completed detox regimen after[facility] - Physical Exam Results Vital Signs: Vital Signs Temperature 98.1 F 02/16/19 09:02 Pulse Rate 76 02/16/19 09:02 Respiratory Rate 16 02/16/19 09:02 Blood Pressure 96/54 L 02/16/19 09:02 O2 Sat by Pulse Oximetry (%) Pertinent Admission Physical Exam Findings: alcohol and benzo withdrawal sx Laboratory Last Values WBC 8.2 K/mm3 (4.0-10.0) 02/13/19 08:00 RBC 4.59 M/mm3 (4.00-5.60) 02/13/19 08:00 Hgb 12.4 GM/dL (11.7-16.9) 02/13/19 08:00 Hct 38.2 % (35.4-49) 02/13/19 08:00 MCV 83.2 fl (80-96) 02/13/19 08:00 MCH 27.0 pg (25.7-33.7) 02/13/19 08:00 MCHC 32.4 g/dl (32.0-35.9) 02/13/19 08:00 RDW 14.0 % (11.9-15.9) 02/13/19 08:00 Plt Count 349 K/MM3 (134-434) D 02/13/19 08:00 MPV 7.8 fl (7.5-11.1) 02/13/19 08:00 Sodium 138 mmol/L (136-145) 02/13/19 08:00 Potassium 4.4 mmol/L (3.5-5.1) 02/13/19 08:00 Chloride 104 mmol/L (98-107) 02/13/19 08:00 Carbon Dioxide 28 mmol/L (21-32) 02/13/19 08:00 Anion Gap 5 MMOL/L (8-16) L 02/13/19 08:00 BUN 6 mg/dL (7-18) L 02/13/19 08:00 Creatinine 0.7 mg/dL (0.55-1.3) 02/13/19 08:00 Est GFR (CKD-EPI)AfAm 142.70 02/13/19 08:00 Est GFR (CKD-EPI)NonAf 123.13 02/13/19 08:00 Random Glucose 85 mg/dL (74-106) 02/13/19 08:00 Calcium 8.8 mg/dL (8.5-10.1) 02/13/19 08:00 Total Bilirubin 0.2 mg/dL (0.2-1) 02/13/19 08:00 AST 18 U/L (15-37) 02/13/19 08:00 ALT 21 U/L (13-61) 02/13/19 08:00 Alkaline Phosphatase 77 U/L (45-117) 02/13/19 08:00 Total Protein 7.2 g/dl (6.4-8.2) 02/13/19 08:00 Albumin 3.6 g/dl (3.4-5.0) 02/13/19 08:00 RPR Titer Nonreactive (NONREACTIVE) 02/13/19 08:00 lab noted - Treatment Hospital Course: Detox Protocol Followed, Detoxed Safely, Responded well, Discharged Condition Good, Rehab Referral Accepted Patient has Accepted a Rehab Referral to: [facility] - Medication Discharge Medications: Ambulatory Orders Methadone [Dolophine -] 130 mg PO DAILY 09/15/18 Buspirone HCl [Buspar -] 5 mg PO BID 02/12/19 Ergocalciferol (Vitamin D2) [Vitamin D2] 50,000 unit PO WEEKLY 02/12/19 Mirtazapine [Remeron -] 15 mg PO DAILY 02/12/19 Polyethylene Glycol 3350 [Miralax 119 gm Btl -] 17 gm PO DAILY 02/12/19 Sertraline HCl [Zoloft] 100 mg PO DAILY 02/12/19 hydrOXYzine PAMOATE [Vistaril -] 50 mg PO TID 02/12/19 levETIRAcetam [Keppra -] 750 mg PO BID 02/12/19 - Diagnosis (1) Sedative, hypnotic or anxiolytic abuse with sedative, hypnotic or anxiolytic -induced anxiety disorder Status: Acute (2) Methadone maintenance therapy patient Status: Chronic (3) Nicotine dependence Status: Acute Qualifiers: Nicotine product type: cigarettes Substance use status: in withdrawal Qualified Code(s): F17.213 - Nicotine dependence, cigarettes, with withdrawal (4) Substance induced mood disorder Status: Suspected (5) Seizure Status: Chronic - AMA Did Patient Leave Against Medical Advice: No
== END 2019-02-16 12:40 | disposition other institution (70) | DRG 773 ==
LOC: YASAS 12:13 → Y3N 16:26
PROVIDERS: ADMIT Surgery; ATTEND Surgery
PROC: HZ2ZZZZ Detoxification Services for Substance Abuse Treatment (ICD-10-PCS; principal; 2019-02-12)
DX: F11.23 Opioid dependence with withdrawal (principal); F10.230 Alcohol dependence with withdrawal, uncomplicated; F13.230 Sedative, hypnotic or anxiolytic dependence with withdrawal, uncomplicated; F13.280 Sedative, hypnotic or anxiolytic dependence with sedative, hypnotic or anxiolytic-induced anxiety disorder; F14.20 Cocaine dependence, uncomplicated; F12.10 Cannabis abuse, uncomplicated; F17.213 Nicotine dependence, cigarettes, with withdrawal; G40.909 Epilepsy, unspecified, not intractable, without status epilepticus; G47.00 Insomnia, unspecified; Z91.012 Allergy to eggs; Z91.013 Allergy to seafood
CPT/HCPCS: 36415; 80053; 85027; 86593

== ENCOUNTER 2019-02-16 12:58 | Inpatient (IN) | payer OTHER ==
[2019-02-16] MEDS ORDERED: P-EPHED 60MG/TRIPROLIDI 2.5MG TABLET PO PRN (14:34)
[2019-02-16] MEDS ORDERED: MENTHOL/PHENOL 1 EACH UD MM PRN (14:34)
[2019-02-16] MEDS ORDERED: MAGNESIUM CITRATE 300 ML BOTTLE PO PRN (14:34)
[2019-02-16] MEDS ORDERED: NICOTINE 14 MG/24 HOURS TOPICAL PATCH TD PRN (14:34)
[2019-02-16] MEDS ORDERED: ACETAMINOPHEN 325 MG TABLET (FP) PO PRN (14:34)
[2019-02-16] MEDS ORDERED: MAGNESIUM HYDROX 2400MG/30ML ORAL SUSPENSION 30 ML CUP PO PRN (14:34)
[2019-02-16] MEDS ORDERED: LOPERAMIDE HCL 2 MG CAPSULE PO PRN (14:34)
[2019-02-16] MEDS ORDERED: guaiFENesin 200 MG/10 ML 10 ML UNIT-DOSE CUPS PO PRN (14:34)
[2019-02-16] MEDS ORDERED: IBUPROFEN 400 MG TABLET (FP) PO PRN (14:34)
--- NOTE | 2019-02-16 14:34 | HP ---
[facility] Rehab Assess/Revision - Admission History Admitted to Rehab from: [facility] Date of Admission to Rehab: 02/16/19 - Vital signs Vital Signs: Vital Signs Period Temp Pulse Resp BP Sys/Martinez Pulse Ox Last 24 Hr 98.2 F 71 16 116/73 - Findings Detox History & Physical reviewed: Yes Concur with findings: Yes Comments/Additional Findings: transferred from detox to rehab admission as per protocol Inpatient Rehab Admission - Rehab Decision to Admit Inpatient rehab admission?: Yes - Initial Determination Are CD services needed?: Yes Free of communicable disease: Yes Not in need of hospitalization: Yes - Rehab Admission Criteria Previous failed treatment: Yes Poor recovery environment: Yes Comorbidities: Yes Lacks judgement: No Patient is meeting Inpatient Rehab admission criteria:: Yes
[2019-02-16] MEDS: ERGOCALCIFEROL (VITAMIN D2) 50,000 UNIT CAPSULE (FP) PO SCH (16:06)
[2019-02-16] MEDS ORDERED: levETIRAcetam 500 MG TABLET (FP) PO SCH (22:00)
[2019-02-16] MEDS ORDERED: hydrOXYzine PAMOATE 50 MG CAPSULE (FP) PO SCH (22:00)
[2019-02-16] MEDS: MIRTAZAPINE 15 MG TABLET (FP) PO SCH (22:06)
[2019-02-16] MEDS: THIAMINE HCL 100 MG TABLET (FP) PO SCH (22:07)
[2019-02-16] MEDS: busPIRone HCL 5 MG TABLET PO SCH (22:07)
[2019-02-16] MEDS: MAG HYDROX/AL HYDROX/SIMETH 30 ML UNIT-DOSE CUP PO PRN (22:08)
[2019-02-16] MEDS: hydrOXYzine PAMOATE 50 MG CAPSULE (FP) PO PRN (22:08)
[2019-02-17] MEDS ORDERED: METHADONE HCL 10 MG TABLET PO SCH (06:00)
[2019-02-17] MEDS ORDERED: METHADONE HCL 40 MG DISPERSABLE TABLET ONE (06:29)
[2019-02-17] MEDS: METHADONE 120 MG, METHADONE 10 MG PO SCH (06:29)
[2019-02-17] MEDS ORDERED: METHADONE HCL 10 MG TABLET ONE (06:29)
[2019-02-17] MEDS ORDERED: MIRTAZAPINE 15 MG TABLET (FP) PO SCH (10:00)
[2019-02-17] MEDS: SERTRALINE HCL 50 MG TABLET (FP) PO SCH (10:23)
[2019-02-17] MEDS: busPIRone HCL 5 MG TABLET PO SCH ×2 (10:23→21:10)
[2019-02-17] MEDS: POLYETHYLENE GLYCOL 3350 119 GM BTL PO SCH (10:24)
[2019-02-17] MEDS: PRENATAL VITAMINS W/ FOLIC ACID TABLET (FP) PO SCH (10:25)
[2019-02-17] MEDS: MAG HYDROX/AL HYDROX/SIMETH 30 ML UNIT-DOSE CUP PO PRN ×2 (10:25→21:12)
[2019-02-17] MEDS: hydrOXYzine PAMOATE 50 MG CAPSULE (FP) PO PRN ×3 (10:27→21:13)
[2019-02-17] MEDS: NICOTINE POLACRILEX 2 MG GUM BUC PRN (10:30)
--- NOTE | 2019-02-17 14:02 | PN ---
[facility] Progress Note Note: Patient was admitted from detox yesterday. He was seen by Dr Mg while there and he was continued on medications(Buspar 5 mg/bid, Zoloft 100 mg/day, Remeron 15 mg/hs) prescribed by his psychiatrist at [facility]. Reports that he is doing well on his medications and wants to continue taking them while on this unit. Will order medications
[2019-02-17] MEDS ORDERED: ONDANSETRON *ODT* 4 MG TABLET SL PRN (14:41)
--- NOTE | 2019-02-17 14:45 | PN ---
[facility] Progress Note Note: PT C/O NAUSEA, DENIES VOMITING. NEW PT TO REHAB FROM [address] [place] [address]. HX OF XANAX, HEROIN,COCAINE ON METHADONE 130 MG PO DAILY. HX OF SEIZURES. Vital Signs 02/17/19 07:06 Temperature 97.8 F Pulse Rate 74 Respiratory 16 Rate Blood Pressure 112/66 PLAN:ZOFRAN 8 MG ODT SL Q8H PRN FOR N/V.
--- NOTE | 2019-02-17 16:12 | CONSULT ---
[facility] Psychiatric Consult - Data Date of interview: 02/17/19 Admission source: [facility] Identifying data: Patient is a 33 year old single male, father of two, domiciled, unemployed and supported on welfare. This is one of multiple admissions for patient. Patient admitted to for opioid, cocaine, and benzodiazepine dependence. Substance Abuse History: Confirmed by the patient in this session Details in current [facility] report : Smoking history: Current every day smoker. Have you smoked in the past 12 months: Yes. Aproximately how many cigarettes per day: 5. Hx Chewing Tobacco Use: No. Initiated information on smoking cessation: No. - Substances abused. Alcohol. Substance route: Oral. Frequency: Daily. Amount used: beers- 24oz can liquor- 1pt. Age of first use: 12. Date of last use: 02/11/19. Alprazolam (Xanax). Substance route: Oral. Frequency: Daily. Amount used: 12mg. Age of first use: 15. Date of last use: 02/11/19. Cocaine. Substance route: Injection. Frequency: Daily. Amount used: $60. Age of first use: 10. Date of last use: 02/11/19. Heroin. Substance route: Injection. Frequency: Daily. Amount used: 2bags. Age of first use: 19. Date of last use: 02/11/19 Medical History: Seizures (on Keppra) Psychiatric History: Patient seen by Dr. Mg on detox. Dr. Mg and Dr. Casanova's note read and appreciated. Ahmet reports h/o of multiple psychiatric hospitalizations ([facility], [facility], [facility] in [place]). Mr Ashton sees a psychiatrist at the [facility] program (on methadone maintenance = 130 mg/day). Diagnosed with MDD + Panic Disorder and is prescribed buspar buspar 5 mg/bid + remeron 15 m/hs + zoloft 50 mg/day ( verified via referral papers from [facility]). No history of suicide attempts. Patient reports stable mood. No psychosis noted. Mental Status Exam - Mental Status Exam Alert and Oriented to: Time, Place, Person Cognitive Function: Good Patient Appearance: Well Groomed Mood: Withdrawn Affect: Appropriate Patient Behavior: Cooperative Speech Pattern: Appropriate Voice Loudness: Moderately Soft/Quiet Thought Process: Goal Oriented Thought Disorder: Not Present Hallucinations: Denies Suicidal Ideation: Denies Homicidal Ideation: Denies Insight/Judgement: Poor Sleep: Fair Appetite: Fair Muscle strength/Tone: Normal Gait/Station: Normal Psychiatric Findings - Problem List ([place] 1, 2,3) (1) Alcohol dependence Current Visit: Yes Status: Acute (2) Nicotine dependence Current Visit: Yes Status: Acute Qualifiers: Nicotine product type: cigarettes Substance use status: in withdrawal Qualified Code(s): F17.213 - Nicotine dependence, cigarettes, with withdrawal (3) Sedative, hypnotic or anxiolytic abuse with sedative, hypnotic or anxiolytic -induced anxiety disorder Current Visit: Yes Status: Acute (4) Cannabis abuse Current Visit: Yes Status: Chronic (5) Cocaine dependence Current Visit: Yes Status: Chronic Qualifiers: Substance use status: uncomplicated Qualified Code(s): F14.20 - Cocaine dependence, uncomplicated (6) History of depression Current Visit: Yes Status: Chronic (7) Opioid dependence on agonist therapy Current Visit: Yes Status: Chronic (8) Substance induced mood disorder Current Visit: Yes Status: Suspected - Initial Treatment Plan Initial Treatment Plan: Psychoeducation provided. Rehab in progress. Patient reports doing well on current medication regiman prescribed by his psychiatrist (Buspar 5 mg/bid, Zoloft 100 mg/day, Remeron 15 mg/hs). Observation.
[2019-02-17] MEDS: MIRTAZAPINE 15 MG TABLET (FP) PO SCH (21:11)
[2019-02-17] MEDS: THIAMINE HCL 100 MG TABLET (FP) PO SCH (21:11)
[2019-02-18] MEDS ORDERED: METHADONE HCL 40 MG DISPERSABLE TABLET ONE (04:21)
[2019-02-18] MEDS ORDERED: METHADONE HCL 10 MG TABLET ONE (04:21)
[2019-02-18] MEDS: METHADONE 120 MG, METHADONE 10 MG PO SCH (06:31)
[2019-02-18] MEDS ORDERED: DIPHENOXYLATE 2.5/ATROPINE.025 1 COMBO TABLET PO ONE (10:20)
[2019-02-18] MEDS: busPIRone HCL 5 MG TABLET PO SCH ×2 (10:31→21:03)
[2019-02-18] MEDS: PRENATAL VITAMINS W/ FOLIC ACID TABLET (FP) PO SCH (10:31)
[2019-02-18] MEDS: SERTRALINE HCL 50 MG TABLET (FP) PO SCH (10:31)
[2019-02-18] MEDS: POLYETHYLENE GLYCOL 3350 119 GM BTL PO SCH (10:31)
[2019-02-18] MEDS: RANITIDINE HCL 150 MG TABLET (FP) PO SCH ×2 (10:31→21:03)
[2019-02-18] MEDS: FLUTICASONE PROP 0.05% 16 GM NASAL SPRAY NS SCH ×2 (10:31→21:05)
[2019-02-18] MEDS: hydrOXYzine PAMOATE 50 MG CAPSULE (FP) PO PRN ×3 (10:34→21:03)
--- NOTE | 2019-02-18 10:47 | PN ---
[facility] Progress Note Note: PT C/O REFLUX/GAS-ZANTAC IN THE PAST, DIARRHEA-ON MIRILAX, NASAL CONGESTION/ DRAINAGE-USES NASAL SPRAY. Vital Signs - 24 hr 02/18/19 02/18/19 02/18/19 00:30 03:30 06:54 Temperature 97.9 F Pulse Rate 83 Respiratory 18 18 18 Rate Blood Pressure 113/70 A:GERD RHINITIS PLAN:FLONASE NASAL SPRAY DIRECTED ZANTAC 150 MG PO BID D/C MIRILAX LOMOTIL 1 TAB PO X 1.
[2019-02-18] MEDS: MIRTAZAPINE 15 MG TABLET (FP) PO SCH (21:03)
[2019-02-18] MEDS: THIAMINE HCL 100 MG TABLET (FP) PO SCH (21:03)
[2019-02-19] MEDS ORDERED: METHADONE HCL 10 MG TABLET ONE (05:23)
[2019-02-19] MEDS ORDERED: METHADONE HCL 40 MG DISPERSABLE TABLET ONE (05:24)
[2019-02-19] MEDS: METHADONE 120 MG, METHADONE 10 MG PO SCH (05:55)
[2019-02-19] MEDS: RANITIDINE HCL 150 MG TABLET (FP) PO SCH ×2 (09:59→22:11)
[2019-02-19] MEDS: SERTRALINE HCL 50 MG TABLET (FP) PO SCH (09:59)
[2019-02-19] MEDS: FLUTICASONE PROP 0.05% 16 GM NASAL SPRAY NS SCH ×2 (09:59→22:13)
[2019-02-19] MEDS: busPIRone HCL 5 MG TABLET PO SCH ×2 (10:00→22:11)
[2019-02-19] MEDS: PRENATAL VITAMINS W/ FOLIC ACID TABLET (FP) PO SCH (10:00)
[2019-02-19] MEDS: hydrOXYzine PAMOATE 50 MG CAPSULE (FP) PO PRN ×3 (10:01→22:11)
[2019-02-19] MEDS: MIRTAZAPINE 15 MG TABLET (FP) PO SCH (22:11)
[2019-02-19] MEDS: THIAMINE HCL 100 MG TABLET (FP) PO SCH (22:13)
[2019-02-20] MEDS ORDERED: METHADONE HCL 10 MG TABLET ONE (05:18)
[2019-02-20] MEDS ORDERED: METHADONE HCL 40 MG DISPERSABLE TABLET ONE (05:18)
[2019-02-20] MEDS: METHADONE 120 MG, METHADONE 10 MG PO SCH (06:17)
[2019-02-20] MEDS: PRENATAL VITAMINS W/ FOLIC ACID TABLET (FP) PO SCH (10:33)
[2019-02-20] MEDS: SERTRALINE HCL 50 MG TABLET (FP) PO SCH (10:33)
[2019-02-20] MEDS: busPIRone HCL 5 MG TABLET PO SCH ×2 (10:33→22:02)
[2019-02-20] MEDS: FLUTICASONE PROP 0.05% 16 GM NASAL SPRAY NS SCH ×2 (10:34→22:04)
[2019-02-20] MEDS: RANITIDINE HCL 150 MG TABLET (FP) PO SCH ×2 (10:35→22:02)
[2019-02-20] MEDS: hydrOXYzine PAMOATE 50 MG CAPSULE (FP) PO PRN ×3 (10:36→22:04)
[2019-02-20] MEDS: MIRTAZAPINE 15 MG TABLET (FP) PO SCH (22:02)
[2019-02-20] MEDS: THIAMINE HCL 100 MG TABLET (FP) PO SCH (22:02)
[2019-02-20] MEDS: MELATONIN 5 MG TABLETS PO PRN (22:04)
[2019-02-21] MEDS ORDERED: METHADONE HCL 10 MG TABLET ONE (05:49)
[2019-02-21] MEDS ORDERED: METHADONE HCL 40 MG DISPERSABLE TABLET ONE (05:49)
[2019-02-21] MEDS: METHADONE 120 MG, METHADONE 10 MG PO SCH (06:44)
[2019-02-21] MEDS: busPIRone HCL 5 MG TABLET PO SCH ×2 (10:35→21:45)
[2019-02-21] MEDS: SERTRALINE HCL 50 MG TABLET (FP) PO SCH (10:35)
[2019-02-21] MEDS: RANITIDINE HCL 150 MG TABLET (FP) PO SCH ×2 (10:35→21:44)
[2019-02-21] MEDS: PRENATAL VITAMINS W/ FOLIC ACID TABLET (FP) PO SCH (10:35)
[2019-02-21] MEDS: FLUTICASONE PROP 0.05% 16 GM NASAL SPRAY NS SCH ×2 (10:36→22:01)
[2019-02-21] MEDS: hydrOXYzine PAMOATE 50 MG CAPSULE (FP) PO PRN ×3 (10:37→21:45)
[2019-02-21] MEDS: NICOTINE POLACRILEX 2 MG GUM BUC PRN (14:53)
[2019-02-21] MEDS: THIAMINE HCL 100 MG TABLET (FP) PO SCH (21:45)
[2019-02-21] MEDS: MELATONIN 5 MG TABLETS PO PRN (21:45)
[2019-02-21] MEDS: MIRTAZAPINE 15 MG TABLET (FP) PO SCH (21:45)
[2019-02-22] MEDS ORDERED: METHADONE HCL 10 MG TABLET ONE (03:05)
[2019-02-22] MEDS ORDERED: METHADONE HCL 40 MG DISPERSABLE TABLET ONE (03:05)
[2019-02-22] MEDS: METHADONE 120 MG, METHADONE 10 MG PO SCH (06:25)
[2019-02-22 07:05] VITALS: TEMP 98
[2019-02-22] MEDS: RANITIDINE HCL 150 MG TABLET (FP) PO SCH ×2 (11:00→21:14)
[2019-02-22] MEDS: FLUTICASONE PROP 0.05% 16 GM NASAL SPRAY NS SCH ×2 (11:00→21:13)
[2019-02-22] MEDS: PRENATAL VITAMINS W/ FOLIC ACID TABLET (FP) PO SCH (11:00)
[2019-02-22] MEDS: busPIRone HCL 5 MG TABLET PO SCH ×2 (11:00→21:12)
[2019-02-22] MEDS: SERTRALINE HCL 50 MG TABLET (FP) PO SCH (11:00)
[2019-02-22] MEDS: hydrOXYzine PAMOATE 50 MG CAPSULE (FP) PO PRN ×2 (14:28→21:14)
[2019-02-22] MEDS: MIRTAZAPINE 15 MG TABLET (FP) PO SCH (21:12)
[2019-02-22] MEDS: THIAMINE HCL 100 MG TABLET (FP) PO SCH (21:12)
[2019-02-22] MEDS: MELATONIN 5 MG TABLETS PO PRN (21:13)
[2019-02-23] MEDS ORDERED: METHADONE HCL 40 MG DISPERSABLE TABLET ONE (03:54)
[2019-02-23] MEDS ORDERED: METHADONE HCL 10 MG TABLET ONE (03:54)
[2019-02-23] MEDS ORDERED: METHADONE HCL 10 MG TABLET PO SCH (06:00)
[2019-02-23] MEDS ORDERED: METHADONE 120 MG, METHADONE 10 MG PO SCH (06:00)
[2019-02-23 07:05] VITALS: BP 118/72; PULSE 78
--- NOTE | 2019-02-23 10:20 | PN ---
S Progress Note Note: Psychiatric nurse practitioner note: Patient scheduled for discharge today. A 30 day script of Zoloft 100mg + Buspar 5mg BID + Mirtazapine 15mg HS was electronically sent to [facility], [address] [place], [place] [id number].
--- NOTE | 2019-02-23 10:27 | PN ---
[facility] Progress Note Note: PT COMPLETED REHAB AND DISCHARGED TODAY. PT MET WITH HIS COUNSELOR, MS ZEYAD COOK AND HAS BEEN REFERRED BACK TO [facility]. PT REPORTS HE HAS A PCP WITH [facility] ON [address] [place] , [place]. REPORTS HE WILL FOLLOW UP AT [facility] ON 02/24/19 TO SEE HIS PCP. 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 PT IS ALERT O X 3. DENIES S/H /I. Home Medications Medication Instructions Recorded Methadone [Dolophine -] 130 mg PO DAILY 09/15/18 Buspirone HCl [Buspar -] 5 mg PO BID 02/12/19 Ergocalciferol (Vitamin D2) 50,000 unit PO WEEKLY 02/12/19 [Vitamin D2] Mirtazapine [Remeron -] 15 mg PO DAILY 02/12/19 Polyethylene Glycol 3350 [Miralax 17 gm PO DAILY 02/12/19 119 gm Btl -] hydrOXYzine PAMOATE [Vistaril -] 50 mg PO TID 02/12/19 Buspirone HCl [Buspar -] 5 mg PO BID #60 tablet 02/23/19 Mirtazapine [Remeron -] 15 mg PO HS #30 tablet 02/23/19 Sertraline HCl [Zoloft] 100 mg PO DAILY #30 tablet 02/23/19 levETIRAcetam [Keppra -] 750 mg PO BID #14 tablet 02/23/19 Vital Signs 02/23/19 02/23/19 03:30 07:04 Temperature 98.0 F Pulse Rate 78 Respiratory 18 18 Rate Blood Pressure 118/72 NAD MEDICALLY STABLE PLAN:FOLLOW UP WITH CD AFTERCARE AT [facility] RECOMMENDED ON 02/24/19. FOLLOW UP WITH PCP AT [facility] ON 02/24/19.
[2019-02-23] MEDS: busPIRone HCL 5 MG TABLET PO SCH (10:36)
[2019-02-23] MEDS: PRENATAL VITAMINS W/ FOLIC ACID TABLET (FP) PO SCH (10:36)
[2019-02-23] MEDS: SERTRALINE HCL 50 MG TABLET (FP) PO SCH (10:36)
[2019-02-23] MEDS: FLUTICASONE PROP 0.05% 16 GM NASAL SPRAY NS SCH (10:37)
[2019-02-23] MEDS: RANITIDINE HCL 150 MG TABLET (FP) PO SCH (10:37)
[2019-02-23] MEDS: ERGOCALCIFEROL (VITAMIN D2) 50,000 UNIT CAPSULE (FP) PO SCH (10:37)
== END 2019-02-23 11:00 | disposition home or self-care (01) | DRG 772 ==
LOC: YASAS 12:58 → Y5N 12:59
PROVIDERS: ADMIT Neuromusculoskeletal Medicine & OMM; ATTEND Neuromusculoskeletal Medicine & OMM
PROC: HZ42ZZZ Group Counseling for Substance Abuse Treatment, Cognitive-Behavioral (ICD-10-PCS; principal; 2019-02-16)
DX: F10.20 Alcohol dependence, uncomplicated (principal); F11.20 Opioid dependence, uncomplicated; F13.20 Sedative, hypnotic or anxiolytic dependence, uncomplicated; F14.20 Cocaine dependence, uncomplicated; F12.10 Cannabis abuse, uncomplicated; F17.213 Nicotine dependence, cigarettes, with withdrawal; F19.24 Other psychoactive substance dependence with psychoactive substance-induced mood disorder; K21.9 Gastro-esophageal reflux disease without esophagitis; J31.0 Chronic rhinitis; G40.909 Epilepsy, unspecified, not intractable, without status epilepticus
CPT/HCPCS: Q0162